=== PATIENT | female | born 1960 | race Caucasian/White ===

== ENCOUNTER 2020-10-11 08:21 | Outpatient (CLI) | payer OTHER | END 2020-10-11 08:22 | disposition home or self-care (01) | LOC: CSHMAMMO 08:21 | PROVIDERS: ATTEND Family Medicine | DX: Z12.31 Encounter for screening mammogram for malignant neoplasm of breast (principal); N95.9 Unspecified menopausal and perimenopausal disorder | CPT/HCPCS: 77063; 77067; 77080 ==

== ENCOUNTER 2021-05-13 11:26 | Emergency (ER) | payer OTHER ==
[2021-05-13] MEDS ORDERED: HYDROcodone/Acetaminophen 10/325 mg Tablet ONE (12:05)
[2021-05-13 14:57] LABS: Bilirubin Neg (Negative); Blood, Urine 25 (Negative); Clarity Slightly Cloudy (Clear); Glucose, Urine (Dipstick) Normal (Negative); Ketone, Urine Negative (Negative); Leukocyte 500 (Negative); Nitrite Positive (Negative); Protein, Urine (Dipstick) 100 mg/dl (Neg-Trace); Urobilinogen Normal mg/dL (Less than 2)
[2021-05-13 15:15] LABS: Bacteria/HPF 4+ HPF (None Seen); RBC/HPF 0-3 HPF (0-3); Squamous Epithelial 0-3 HPF (0-3)
[2021-05-13] MEDS ORDERED: cefTRIAXone\\ROCEPHIN 2 GM VIAL ONE (16:06)
[2021-05-13] MEDS ORDERED: Ketorolac Tromethamine 30 MG/ML VIAL ONE (16:13)
== END 2021-05-13 17:06 | disposition home or self-care (01) ==
LOC: CSHERS 11:26
DX: N39.0 Urinary tract infection, site not specified (principal); I10 Essential (primary) hypertension
CPT/HCPCS: 72100; 81003; 81015; 96365; 96372; J0696; J1885

== ENCOUNTER 2021-05-14 17:27 | Emergency (ER) | payer OTHER ==
[2021-05-14] MEDS ORDERED: Fentanyl 100 MCG/2 ML VIAL ONE (19:00)
[2021-05-14] MEDS ORDERED: Piperacillin/Tazobactam 4.5 GM VIAL ONE (19:01)
[2021-05-14] MEDS ORDERED: Cefepime 2 GM VIAL ONE (19:01)
[2021-05-14 19:06] LABS: Mean Corpuscular HGB CONC 35.2 g/dL (32.0-36.0); Mean Corpuscular Hemoglobin 30.3 pg (27.0-33.0); Mean Corpuscular Volume 86.1 fl (81.6-98.3); Mean Platelet Volume 11.7 fl (7.4-10.4); Platelet Count 214 10x3/uL (150-450); RBC Distribution Width 13.1 % (11.5-14.5); White Blood Cell (WBC) Count 14.6 10x3/uL (3.5-10.5)
[2021-05-14 19:16] LABS: PTT 29.6 sec (22.0-33.0); Prothrombin Time 11.3 sec (9.5-12.1)
[2021-05-14 19:20] LABS: ALT (SGPT) 40 U/L (8-55); AST (SGOT) 24 U/L (5-34); Albumin 3.4 g/dL (3.4-4.8); Alkaline Phosphatase 98 U/L (40-110); Anion Gap 18 mmol/L (10-20); BUN (Urea Nitrogen) 40 mg/dL (9.8-20.1); Bilirubin, Total 0.7 mg/dL (0.2-1.2); CK (CPK) 71 U/L (29-168); Calc. Creatinine Clearance 0 mL/min (70-130); Calcium 8.5 mg/dL (7.8-10.44); Carbon Dioxide 23 mmol/L (23-31); Chloride 95 mmol/L (98-107); Globulin 2.5 g/dL (2.4-3.5); Glucose 101 mg/dL (80-115); Potassium 3.1 mmol/L (3.5-5.1); Protein, Total 5.9 g/dL (5.8-8.1); Sodium 133 mmol/L (136-145)
[2021-05-14 19:36] LABS: Band 14 % (5-11); Lymphocytes 9 % (21-51); Monocytes 7 % (0-10); Neutrophil 70 % (42-75)
[2021-05-14 19:37] LABS: Dohle Bodies SLIGHT; Toxic Granulation SLIGHT; Vacuoles SLIGHT
[2021-05-14 19:38] LABS: Platelet Clumps SLIGHT; Platelet Morphology Comment Appears Adequate
[2021-05-14 19:39] LABS: Large Platelets MODERATE
[2021-05-14 19:40] LABS: MDiff Complete? YES; RBC Morphology Normal
[2021-05-14] MEDS ORDERED: Morphine 4 MG/ML VIAL ONE (20:48)
[2021-05-14] MEDS ORDERED: Ondansetron PF 4 MG/2 ML Vial ONE (20:48)
[2021-05-14] MEDS ORDERED: Diazepam 10 MG/2 ML SYRINGE ONE (22:35)
[2021-05-15] MEDS ORDERED: VANCOMYCIN 1.75 GM/350 ML BAG 1.75 GM in Premix Bag 1 BAG IVPB SCH (01:15)
[2021-05-15] MEDS ORDERED: Diazepam 10 MG/2 ML SYRINGE ONE (01:31)
[2021-05-15] MEDS ORDERED: Fentanyl 100 MCG/2 ML VIAL ONE ×2 (03:33→04:28)
== END 2021-05-15 04:34 | disposition short-term general hospital (02) ==
LOC: CSHERS 17:27
DX: L03.116 Cellulitis of left lower limb (principal); M60.08 Infective myositis, other site; M46.26 Osteomyelitis of vertebra, lumbar region; I10 Essential (primary) hypertension; E11.9 Type 2 diabetes mellitus without complications
CPT/HCPCS: 36415; 71045; 72132; 72147; 72149; 74177; 80053; 82550; 83605; 84484; 85025; 85610; 85730; 87040; 96365; 96366; 96367; 96375; 96376; J0692; J2270; J2405; J2543; J3010; J3360; J3370

== ENCOUNTER 2021-06-29 08:25 | Outpatient (CLI) | payer OTHER | END 2021-06-29 08:26 | disposition home or self-care (01) | LOC: CSHWCC 08:25 | PROVIDERS: ATTEND Nurse Practitioner Family | DX: L97.922 Non-pressure chronic ulcer of unspecified part of left lower leg with fat layer exposed (principal); R60.0 Localized edema | CPT/HCPCS: 11042; 29581; 97607; 99203; G0463 ==

== ENCOUNTER 2021-07-04 12:43 | Outpatient (CLI) | payer OTHER | END 2021-07-04 12:44 | disposition home or self-care (01) | LOC: CSHWCC 12:43 | PROVIDERS: ATTEND Nurse Practitioner Family | DX: L97.222 Non-pressure chronic ulcer of left calf with fat layer exposed (principal); R60.0 Localized edema | CPT/HCPCS: 11042; 97607 ==

== ENCOUNTER 2021-07-11 09:01 | Outpatient (CLI) | payer OTHER | END 2021-07-11 09:02 | disposition home or self-care (01) | LOC: CSHWCC 09:01 | PROVIDERS: ATTEND Nurse Practitioner Family | DX: L97.929 Non-pressure chronic ulcer of unspecified part of left lower leg with unspecified severity (principal); R60.0 Localized edema ==

== ENCOUNTER 2021-07-18 08:56 | Outpatient (CLI) | payer OTHER | END 2021-07-18 08:57 | disposition home or self-care (01) | LOC: CSHWCC 08:56 | PROVIDERS: ATTEND Nurse Practitioner Family | DX: L97.929 Non-pressure chronic ulcer of unspecified part of left lower leg with unspecified severity (principal); L97.229 Non-pressure chronic ulcer of left calf with unspecified severity; R60.0 Localized edema | CPT/HCPCS: 29581 ==

== ENCOUNTER 2021-08-01 10:59 | Outpatient (CLI) | payer OTHER | END 2021-08-01 11:00 | disposition home or self-care (01) | LOC: CSHWCC 10:59 | PROVIDERS: ATTEND Nurse Practitioner Family | DX: L97.922 Non-pressure chronic ulcer of unspecified part of left lower leg with fat layer exposed (principal) ==

== ENCOUNTER 2022-06-05 20:45 | Emergency (ER) | payer OTHER, SELFPAY ==
[2022-06-05] MEDS ORDERED: Fentanyl 100 MCG/2 ML VIAL ONE (21:44)
[2022-06-05 21:45] LABS: #Basophils 0.1 10x3/uL (0.0-0.2); #Eosinphils 0.3 10x3/uL (0.0-0.5); #Monocytes 0.6 10x3/uL (0.0-1.1); #Neutrophils 5.3 10x3/uL (1.5-8.4); %Basophils 0.7 % (0.0-2.0); %Eosinophils 4.2 % (0.0-6.0); %Lymphocytes 16.7 % (18.0-47.0); %Monocytes 7.8 % (0.0-10.0); %Neutrophils 69.9 % (40.0-75.0); Hemoglobin 9.3 g/dL (12.0-15.5); Mean Corpuscular HGB CONC 32.6 g/dL (32.0-36.0); Mean Corpuscular Hemoglobin 29.6 pg (27.0-33.0); Mean Corpuscular Volume 90.8 fl (81.6-98.3); Mean Platelet Volume 9.3 fl (7.4-10.4); Platelet Count 539 10x3/uL (150-450); RBC Distribution Width 12.9 % (11.5-14.5); Red Blood Cell (RBC) Count 3.14 10x6/uL (3.90-5.03); White Blood Cell (WBC) Count 7.6 10x3/uL (3.5-10.5)
[2022-06-05 21:58] LABS: ALT (SGPT) 54 U/L (8-55); AST (SGOT) 20 U/L (5-34); Alkaline Phosphatase 136 U/L (40-110); Anion Gap 13 mmol/L (10-20); BUN (Urea Nitrogen) 32 mg/dL (9.8-20.1); Bilirubin, Total 0.2 mg/dL (0.2-1.2); Calc. Creatinine Clearance 0 mL/min (70-130); Calcium 9.4 mg/dL (7.8-10.44); Carbon Dioxide 24 mmol/L (23-31); Chloride 108 mmol/L (98-107); Estimated GFR 65; Globulin 3.1 g/dL (2.4-3.5); Glucose 100 mg/dL (80-115); Protein, Total 7.1 g/dL (5.8-8.1); Sodium 141 mmol/L (136-145)
[2022-06-05] MEDS ORDERED: Ketorolac Tromethamine 30 MG/ML VIAL ONE (23:25)
== END 2022-06-05 23:14 | disposition home or self-care (01) ==
LOC: CSHERS 20:45
DX: M25.461 Effusion, right knee (principal); I10 Essential (primary) hypertension; E11.9 Type 2 diabetes mellitus without complications
CPT/HCPCS: 80053; 85025; 96374; 96375; J1885; J3010